=== PATIENT | male | born 1930 | race Caucasian/White ===

== ENCOUNTER 2017-01-28 10:37 | Emergency (ER) | payer MEDICARE ==
--- NOTE | ~2017-01-28 | CT52 ---
[facility] A Service of [facility] RADIOLOGY TEXT RESULTS PATIENT: KATJA FUENTES LOCATION: CFT[facility] : 32 UNIT #: [id number] AGE: [address]: Ying Fraire APRN SEX: M ORDER DR: [id number] [facility] [address] [place], [place] [address] [id number] E MR#: [id number] Acc #: [id number] NAME: KATJA FUENTES : 1930 SEX: M STUDY DATE/TIME: 01/28/2017 11:26 UNIT: CFTX ROOM: STUDY DESCRIPTION: CT Cervical Spine Wo Cont Attending Physician: Ying Fraire A.P.R.N. Ordering Physician: Rommel Antony M.D. Primary Care Physician: No Primary Care Physician MEDICAL IMAGING REPORT This report is preliminary unless electronic signature is present EXAM Cervical spine CT HISTORY Patient fell this morning. Patient complains of neck pain after falling TECHNIQUE Thin section imaging was obtained from the skull base to the upper thoracic spine and evaluated at bone and soft tissue windows with multiplanar reformats. This CT exam was performed with one or more of the following radiation dose reduction techniques: automatic control, adjustment of mA and/or kV according to patient size, and iterative reconstruction. FINDINGS Multilevel degenerative disc and facet disease is noted. At C2-3 there is an anterolisthesis of approximately 4-5 mm. There is moderately severe right-sided facet arthropathy with mild right foraminal stenosis. At C3-4 the disc is collapsed and there is a broad-based posterior disc osteophyte complex extending to both uncovertebral joints. Foraminal narrowing is severe on the right and moderate on the left with central stenosis also noted. The AP diameter of the spinal canal at this level is 8 mm. Posterior facet arthropathy is severe on the right and moderate on the left. At C4-5 there is mild degenerative change in the disc with a small posterior osteophyte causing mild central stenosis. There was advanced bilateral facet hypertrophy with moderately severe foraminal stenosis on both sides. [facility] A Service of [facility] RADIOLOGY TEXT RESULTS PATIENT: AKTJA FUENTES LOCATION: [facility] : 32 UNIT #: [id number] AGE: [address]: Ying Fraire APRN SEX: M ORDER DR: At C5-6 there is anterior and posterior osteophyte formation. Facet arthropathy is advanced on the right and moderate on the left. Central stenosis is mild. At C6-7 the disc is collapsed. There is broad-based posterior disc and osteophyte extending to the uncovertebral joints with moderately severe foraminal stenosis bilaterally. At C7-T1 the disc is preserved. There is moderately severe facet disease on the left. No fractures are seen and no destructive bone lesions are noted. No paraspinous masses or fluid collections are seen. IMPRESSION Multilevel moderate to advanced degenerative disc and facet disease as described above. Central stenosis is worst at the C3-4 level. No evidence of fracture. Dictated by... Uri Mondragon M.D. THIS IS AN ELECTRONICALLY VERIFIED REPORT Uri Mondragon M.D. at 01/28/2017 4:35 PM ZAC/veronica TD: 01/28/2017 15:13 JOB #: [id number] MEDICAL IMAGING REPORT Page 1 of 1 COPY
--- NOTE | ~2017-01-28 | CT71 ---
[facility] A Service of [facility] RADIOLOGY TEXT RESULTS PATIENT: KATJA FUENTES LOCATION: [facility] : 32 UNIT #: [id number] AGE: [address]: Ying Fraire APRN SEX: M ORDER DR: [id number] [facility] [address] [place], [place] [address] [id number] E MR#: [id number] Acc #: [id number] NAME: KATJA FUENTES : 1930 SEX: M STUDY DATE/TIME: 01/28/2017 11:26 UNIT: CFTX ROOM: STUDY DESCRIPTION: CT Head Wo Contrast Attending Physician: Ying Fraire A.P.R.N. Ordering Physician: Ed Doctor [id number] [facility] Primary Care Physician: Primary Care Physician No MEDICAL IMAGING REPORT This report is preliminary unless electronic signature is present EXAM Head CT without contrast HISTORY Patient fell with a laceration to the forehead earlier today. TECHNIQUE Axial images were obtained without contrast. The CT exam was performed with one or more of the following radiation dose reduction techniques: automatic exposure control, adjustment of mA and/or kV according to patient size, and iterative reconstruction. FINDINGS Generalized atrophy is noted. There are chronic ischemic changes around the ventricles bilaterally. There is no evidence of mass lesion, hemorrhage or edema. There is no evidence of midline shift. Extraaxial structures are remarkable for fluid or mucosal thickening in the right maxillary sinus which is almost completely opacified. IMPRESSION Near complete opacification of the right maxillary sinus is noted. The brain images show atrophy with chronic ischemic changes around ventricles and no acute findings. Dictated by... Uri Mondragon M.D. THIS IS AN ELECTRONICALLY VERIFIED REPORT Uri Mondragon M.D. at 01/28/2017 4:35 PM RLF/cmm [facility] A Service of [facility] RADIOLOGY TEXT RESULTS PATIENT: KATJA FUENTES LOCATION: [facility] : 32 UNIT #: [id number] AGE: [address]: Ying Fraire APRN SEX: M ORDER DR: TD: 01/28/2017 14:30 JOB #: [id number] MEDICAL IMAGING REPORT Page 1 of 1 COPY
== END 2017-01-28 13:38 | disposition home or self-care (01) ==
LOC: CFTX 10:37 → CED 10:37 → CFTX 13:00
DX: S06.0X9A Concussion with loss of consciousness of unspecified duration, initial encounter (principal); S01.81XA Laceration without foreign body of other part of head, initial encounter; S13.4XXA Sprain of ligaments of cervical spine, initial encounter; W01.0XXA Fall on same level from slipping, tripping and stumbling without subsequent striking against object, initial encounter; Y92.89 Other specified places as the place of occurrence of the external cause; Z23 Encounter for immunization
CPT/HCPCS: 12013; 70450; 72125; 90471; 90715; 99284